=== PATIENT | female | born 1980 | race African-American/Black ===

== ENCOUNTER 2020-04-09 22:34 | Emergency (ER) | payer OTHER ==
[~2020-04-09] VITALS: Ht 149.9 cm; Wt 72.6 kg
[2020-04-09 22:37] VITALS: BP 123/71
[2020-04-09 23:08] LABS: URINE BILIRUBIN NEGATIVE (Negative); URINE BLOOD 1+ (Negative); URINE CLARITY CLEAR; URINE COLOR YELLOW; URINE GLUCOSE-RANDOM* NEGATIVE (Negative); URINE KETONES NEGATIVE (Negative); URINE LEUKOCYTES-REFLEX NEGATIVE (Negative); URINE NITRITE-REFLEX NEGATIVE (Negative); URINE PROTEIN (DIPSTICK) NEGATIVE (Negative); URINE SPECIFIC GRAVITY >= 1.030 (1.005-1.035); URINE UROBILINOGEN 0.2 E.U./dl (0.2-1.0)
[2020-04-09] MEDS ORDERED: NAPROSYN500 MG PO (23:35)
[2020-04-09] MEDS ORDERED: LIDODERM1 EACH TOP (23:35)
[2020-04-09] MEDS ORDERED: MEDROL4 M1 PO (23:35)
[2020-04-09] MEDS ORDERED: FLEXERIL PO (23:35)
[2020-04-09 23:36] LABS: CASTS None Seen /LPF (None Seen); CRYSTALS None Seen /LPF (None Seen); MUCUS >6 Heavy strn/LPF (None Seen); SQUAMOUS 4-10 Moderate /LPF (0-3); URINE RBC 3-10 Few /HPF (0-2); URINE WBC-REFLEX 0-5 Rare /HPF (0-5)
== END 2020-04-09 23:25 | disposition home or self-care (01) ==
LOC: ER 22:34
PROVIDERS: Emergency Medicine
DX: M54.41 Lumbago with sciatica, right side (principal)